=== PATIENT | female | born 1980 | race Two or more races ===

== ENCOUNTER → 2024-06-03 | Outpatient (CLI) | payer BC, MEDICAID, SELFPAY ==
--- NOTE | 2024-06-03 08:15 | XR_ITS ---
Examination: Screening digital mammography, bilateral Computer aided detection 3-D breast Tomosynthesis, bilateral Date and time of exam: June 03, 2024 0803 hours Comparison May 01, 2023 Indication: Screening Technique: Nonmagnified MLO, CC views of the breasts to been obtained, reconstructed from 3-D Tomosynthesis images. R2 computer aided detection program utilized for evaluation of suspicious masses and/or abnormal calcifications. 3-D Tomosynthesis images obtained. Findings: The breasts are heterogeneously dense, which may obscure small masses Benign calcifications Round circumscribed 4 mm nodule upper outer right breast anterior depth Impression: BI-RADS Category 0: Incomplete: Need additional imaging evaluation Recommend follow-up spot tomographic views upper L4 millimeter nodule upper outer right breast, as well as right breast sonography to complete the workup.
== END | disposition home or self-care (01) ==
LOC: CDIM 07:57
PROVIDERS: Referring Provider Physician Assistant; Visit Provider Physician Assistant
DX: Z12.31 Encounter for screening mammogram for malignant neoplasm of breast (principal); R92.8 Other abnormal and inconclusive findings on diagnostic imaging of breast
CPT/HCPCS: 77063; 77067

== ENCOUNTER → 2024-08-26 | Outpatient (CLI) | payer BC, MEDICAID, SELFPAY ==
--- NOTE | 2024-08-26 13:00 | XR_ITS ---
Examination: Breast ultrasound complete, bilateral Date and time of exam: August 26, 2024 1315 hours INDICATIONS: Mammogram June 03, 2024 4 mm nodule upper outer right breast Technique: Real-time grayscale ultrasonographic imaging bilateral breasts, including all 4 quadrants as well as nipple retroareolar and axillary regions. Findings: Sonographic images right breast 8:00 circumscribed nodule 4 x 5 mm Sonographic images left breast No cystic or solid mass IMPRESSION: BI-RADS Category 3: Probably benign findings Recommend 1 additional 6 month right breast sonogram follow-up to document stability of 11:00 nodule described above
--- NOTE | 2024-08-26 14:15 | XR_ITS ---
Examination: Diagnostic digital mammography, unilateral, right Computer aided detection 3-D breast Tomosynthesis, unilateral Date and time of exam: August 26, 2024 1337 hours INDICATIONS: Mammogram June 03, 2024 4 mm nodule upper outer right breast Technique: Nonmagnified MLO, CC views of the right breast have been obtained, reconstructed from 3-D Tomosynthesis images. R2 computer aided detection program utilized for evaluation of suspicious masses and/or abnormal calcifications. 3-D Tomosynthesis images obtained. Findings: The breast is heterogeneously dense, which may obscure small masses 14 mm focal asymmetry upper outer right breast anterior depth Impression: BI-RADS category 3: Probably benign findings One additional right mammogram 6 month follow-up is needed to document stability of focal asymmetry right breast described above
== END | disposition home or self-care (01) ==
PROVIDERS: PCP Physician Assistant; Referring Provider Physician Assistant; Visit Provider Physician Assistant
DX: R92.331 Mammographic heterogeneous density, right breast (principal); N64.89 Other specified disorders of breast; N63.11 Unspecified lump in the right breast, upper outer quadrant
CPT/HCPCS: 76641; 77061; 77065; G0279

== ENCOUNTER → 2025-04-28 | Outpatient (CLI) | payer MEDICAID, SELFPAY ==
--- NOTE | 2025-04-28 07:30 | XR_ITS ---
Examination: Breast ultrasound, unilateral, right Date and time of exam: April 28, 2025, 0827 hours INDICATIONS: Mammogram August 26, 1999 2514 mm focal asymmetry upper right breast anterior depth Technique: Real-time vela scale ultrasonographic imaging performed right breast including all 4 quadrants as well as nipple retroareolar and axillary region. Findings: 1:00 cyst 6 x 4 mm 2:00 cyst 5 x 5 mm 7:00 cyst 6 x 5 mm 9:00 cyst 5 x 6 mm 11:00 cyst 6 x 6 mm Retroareolar cyst 10 x 10 mm No solid nodules IMPRESSION: BI-RADS Category 2: Benign findings
--- NOTE | 2025-04-28 08:00 | XR_ITS ---
Examination: Diagnostic digital mammography, unilateral, right Computer aided detection 3-D breast Tomosynthesis, unilateral Date and time of exam: April 28, 2025, 0856 hours INDICATIONS: Mammogram June 03, 2020 for a 4 mm nodule upper outer right breast Technique: Nonmagnified MLO, CC views of the right breast have been obtained, reconstructed from 3-D Tomosynthesis images. R2 computer aided detection program utilized for evaluation of suspicious masses and/or abnormal calcifications. 3-D Tomosynthesis images obtained. Findings: The breast is heterogeneously dense, which may obscure small masses Stable nodular asymmetry outer right breast on the cc view No interval suspicious masses Impression: BI-RADS category 2: Benign findings Return to yearly follow-up mammography
== END | disposition home or self-care (01) ==
PROVIDERS: PCP Physician Assistant; Referring Provider Physician Assistant; Visit Provider Physician Assistant
DX: R92.321 Mammographic fibroglandular density, right breast (principal)
CPT/HCPCS: 76641; 77061; 77065; G0279

== ENCOUNTER 2025-05-14 08:30 | Outpatient (RCR) | payer MEDICAID, SELFPAY ==
[2025-05-12 17:40] LABS: HCG Qualitative,Urine Negative
--- NOTE | 2025-05-13 08:30 | XR_ITS ---
EXAM: NM thyroid INDICATION: Nontoxic single thyroid nodule. Exam date and time: 05/13/2025 at 4:06 p.m. TECHNIQUE: After oral administration of 291 uCi of Iodine-123, thyroid scan and uptake were performed at 24 hours post administration. COMPARISON: None. FINDINGS: Homogenous uptake of radiotracer by the thyroid gland. No evidence for hot or cold nodules. 24 hrs uptake was calculated at 27.2% and is normal (Normal range = 10-36%). Differential right thyroid uptake of 12.8% and left thyroid uptake of 14.4%. IMPRESSION: Diffuse homogeneous thyroid uptake without evidence for hyperfunctioning or hypofunctioning nodules. 24 hours thyroid uptake is normal at 27.2%.
== END 2025-05-19 23:59 | disposition home or self-care (01) ==
LOC: SNUC 08:30
PROVIDERS: PCP Physician Assistant; Referring Provider Physician Assistant; Visit Provider Physician Assistant
DX: E04.1 Nontoxic single thyroid nodule (principal); Z32.00 Encounter for pregnancy test, result unknown
CPT/HCPCS: 78013; 81025; A9516